=== PATIENT | female | born 1955 ===

== ENCOUNTER 2016-05-22 14:34 | Observation (INO) | payer MEDICARE, MEDICAID ==
[~2016-05-22] VITALS: Ht 162.6 cm; Wt 97.9 kg
--- NOTE | ~2016-05-22 | HP ---
PATIENT'S NAME: [facility] AGE: 61 Y [address] ROOM: [place] [address] LOCATION: [facility] ADMIT DATE: 05/22/2016 History & Physical DISCHARGE DATE: 05/24/2016 FAMILY PHYSICIAN: Arsenio Wallis MD ATTENDING PHYSICIAN: Arsenio Wallis DATE OF SERVICE: BRIEF HISTORY: This is a patient of mine, who was seen in the emergency room with falls on 2 occasions in a short period of time. The patient is being admitted for evaluation of falls and observation. The patient has low vision, hyperlipidemia, hypertension, type 2 diabetes, and history of noncompliance. PAST MEDICAL HISTORY: Significant for the following; hypothyroidism, type 2 diabetes, depression, low vision in both eyes, hypertension, chronic anticoagulation, asthma, hypertension, factor V Leiden deficiency. SOCIAL HISTORY: She is single. Lives by herself. FAMILY HISTORY: Significant for cancers, type 2 diabetes, heart disease, and AR. MEDICATIONS: At the time of admission include: 1. Insulin pump. 2. Levemir. 3. Lidoderm patch. 4. Metoprolol. 5. Omeprazole. 6. Rozerem. 7. Simvastatin. 8. Spironolactone. 9. Symbicort. 10. Torsemide. 11. Ventolin HFA. 12. Coumadin. 13. Duloxetine. 14. Isosorbide mononitrate. 15. Lamictal. 16. Primidone. 17. Topamax. PATIENT'S NAME: [facility] AGE: 61 Y [address] ROOM: [place] [address] LOCATION: [facility] ADMIT DATE: 05/22/2016 History & Physical DISCHARGE DATE: 05/24/2016 FAMILY PHYSICIAN: Arsenio Wallis MD ATTENDING PHYSICIAN: Arsenio Wallis REVIEW OF SYSTEMS: No recent weight loss or weight gain. No fevers or chills. No shortness of breath or chest discomfort. PHYSICAL EXAMINATION: GENERAL: Awake, alert, in no acute distress. HEENT: Unremarkable other than decreased vision. NECK: Supple. LUNGS: Clear. HEART: Regular rate and rhythm. ABDOMEN: Soft, nontender, nondistended. IMPRESSION: 1. Recent followup. 2. Hypertension. 3. Low vision. 4. Hyperlipidemia. 5. Hypothyroidism. 6. Depression. 7. Factor V Leiden deficiency. 8. Chronic anticoagulation. 9. Depression. PLAN: Admit for PT and OT. Gait training. May need continued treatment as an outpatient. MD KENNY CALIXTOP/modl /[id number] D: T: HISTORY & PHYSICAL
--- NOTE | ~2016-05-22 | ER ---
PATIENT'S NAME: [facility] AGE: 60 Y [address] ROOM: [place] [address] LOCATION: [facility] ADMIT DATE: 05/22/2016 ER/Outpatient Report DISCHARGE DATE: FAMILY PHYSICIAN: Arsenio Wallis MD ATTENDING PHYSICIAN: Arsenio Wallis Time of Arrival: 1435 hours. Time of Evaluation: 1435 hours. CHIEF COMPLAINT: Fall. HISTORY OF PRESENT ILLNESS: The patient is a 60-year-old female who presents to the emergency department today with a chief complaint of falls. The patient was seen and evaluated here in the emergency department yesterday for weakness and falls. She had made it to her neighbor's house yesterday, sat down and the neighbor became concerned because she was weak. She was seen and evaluated here in the emergency department. The work up which included laboratory analysis, urinalysis, CT scan of the brain, and EKG and those results were unremarkable. The patient was feeling better, and she was discharged home. She was instructed to follow up with Dr. Wallis. Today, the patient reports she has had multiple falls. She continues to feel weak. She does complain of mild headache at this time. It is all over. It is currently moderate in severity. It is not the worst headache of her life. It is not thunderclap. Apparently, there was a report that the patient was confused as well by the neighbors on report from EMS. 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 PAST SURGICAL HISTORY: Cholecystectomy. SOCIAL HISTORY: The patient lives alone and does have blindness in the right eye, decreased vision in left eye, denies any tobacco, alcohol, or illicit drug use. ALLERGIES: CODEINE. MEDICATIONS: Please see list. SALESPERSON [place] AND GLASSWARE: Rayo. PATIENT'S NAME: [facility] AGE: 60 Y [address] ROOM: [address] [address] LOCATION: [facility] ADMIT DATE: 05/22/2016 ER/Outpatient Report DISCHARGE DATE: FAMILY PHYSICIAN: Arsenio Wallis MD ATTENDING PHYSICIAN: Arsenio Wallis NEUROLOGY: Dr. Alexander. REVIEW OF SYSTEMS: All systems are reviewed by myself and are negative with the exception of those discussed in HPI and past medical history. PHYSICAL EXAMINATION: VITAL SIGNS: Weight 100 kg, blood pressure 132/73, pulse 90, respiratory rate 18, temperature 97.8, and oxygen saturation 96% on room air. GENERAL: The patient is a 60-year-old female who appears stated age. She appears in no acute distress. HEENT: Head: Normocephalic and atraumatic. Pupils are equal, round, and reactive to light. The patient's extraocular motions are intact. Nares are patent bilaterally. No Boone sign. No raccoon eyes. NECK: Supple. There is no nuchal rigidity. CARDIOVASCULAR: Regular rate and rhythm. No murmurs, rubs, or gallops. LUNGS: Clear to auscultation bilaterally. No wheezes, rales, or rhonchi. ABDOMEN: Soft, nontender, and nondistended. No rebound, rigidity, or guarding. MUSCULOSKELETAL: The patient does move all 4 extremities. She is able to ambulate with some assistance. NEUROLOGICAL: GCS 15. She is alert, oriented to person, place, time, and President. The patient has difficulties with [id number] likely secondary to her vision difficulties. She does have some slight asset administrator strength deficiency on the right side compared to the left. She has no pronator drift. Downward going toes. No clonus, 2/4 reflexes. SKIN: Multiple bruises noted. There are multiple scabbed areas on the legs. EXTREMITIES: She has 2/4 pulses in all 4 extremities. LABORATORY DATA AND X-RAYS: Labs and x-rays are obtained. EKG is obtained, shows sinus rhythm with a rate 88, normal axis, normal interval. No ST elevation, ST depression, or T-wave inversions. No significant change from 05/21/2016. Lactate is 2.0. CBC: White blood cell count 16.0, otherwise normal. INR is 3.1. CMP is unremarkable. LFTs are unremarkable. Cardiac enzymes are unremarkable. BMP is 212. Procalcitonin is less than 0.05. Chest x-ray shows no acute process. Urinalysis is pending. MRI of the brain is pending. IMPRESSION: 1. Weakness. 2. Immobility. 3. Frequent falls. 4. Initial visit. PATIENT'S NAME: FLA[facility]IA DI[facility]RICH [facility] AGE: 60 Y [address] ROOM: [address] [address] LOCATION: [facility] ADMIT DATE: 05/22/2016 ER/Outpatient Report DISCHARGE DATE: FAMILY PHYSICIAN: Arsenio Wallis MD ATTENDING PHYSICIAN: Arsenio Wallis EMERGENCY DEPARTMENT COURSE: The patient was brought back to the examination room. Seen and evaluated by myself. An IV was established. Laboratory analysis and imaging are obtained as described above. We are attempting to get the patient into the MRI. I have discussed the case with Dr. Wallis, the patient's primary care doctor. We are obviously concerned as the patient has had 2 ER visits over the past 2 days. She is feeling weak, and she is having falls and having issues with immobility. The patient lives alone and has minimal social support. I do feel the patient will require admission for observation. We have ordered the MRI, that MRI is pending at the time of dictation. I have discussed this with Dr. Wallis. He will follow up on those results. We will observe the patient in the hospital for further evaluation. DISPOSITION: The patient is admitted under the care of Dr. Wallis for observation in stable condition. DO ADRIÁN COLE/modl /[id number] d: 05/22/162008 t: 05/23/16 0727, OUTPATIENT REPORT
[2016-05-22 15:06] LABS: BASOPHIL # 0.1 K/uL (0.0-0.2); BASOPHIL % 0.3 %; EOSINOPHIL # 0.2 K/uL (0.0-0.5); EOSINOPHIL % 1.3 %; HEMATOCRIT 40.9 % (33.0-46.0); HEMOGLOBIN 13.5 g/dL (10.0-15.0); IMMATURE GRANULOCYTE # 0.1 K/uL (0.0-0.3); IMMATURE GRANULOCYTE % 0.8 %; LYMPHOCYTE # 3.1 K/uL (0.8-4.0); LYMPHOCYTE % 19.4 %; MCH 29.6 pg (27.0-34.0); MCV 89.7 fl (83.0-98.0); MONOCYTE # 0.7 K/uL (0.0-1.0); MONOCYTE % 4.5 %; MPV 9.6 fl (9.4-12.4); NEUTROPHIL # (ANC) 11.8 K/uL (1.8-7.8); NEUTROPHIL % 73.7 %; NRBC % 0 /100WBC (0-0.00); PLATELET COUNT 276 K/uL (150-450); RBC 4.56 M/uL (3.50-5.50); RDW-CV 14.2 % (11.9-14.6)
[2016-05-22 15:16] LABS: PTT 52 SECONDS (25-32)
[2016-05-22 15:19] LABS: INR - (THERAPEUTIC) 3.1 (0.9-1.1); PROTIME 35.7 SECONDS (9.6-11.1)
[2016-05-22 15:28] LABS: ALBUMIN 3.2 gm/dL (3.5-5.0); ALK PHOS 111 IU/L (33-138); ALT 33 IU/L (12-78); ANION GAP 14.5 (10.0-19.0); AST 11 IU/L (10-40); BLOOD UREA NITROGEN 13 mg/dL (6-24); CALCIUM 8.2 mg/dL (8.5-10.5); CHLORIDE 104 mMol/L (96-110); CO2 24 mMol/L (22-32); CPK 88 IU/L (21-215); CREATININE 0.8 mg/dL (0.5-1.1); ESTIMATED GFR (MDRD EQUATION) > 60; POTASSIUM 3.5 mMol/L (3.7-5.1); SODIUM 139 mMol/L (135-145); TOTAL PROTEIN 7.4 g/dL (6.0-8.4)
[2016-05-22 15:29] LABS: TOTAL BILIRUBIN 0.2 mg/dL (0.0-1.5)
[2016-05-22 16:33] LABS: BILIRUBIN URINE NEGATIVE (NEGATIVE); BLOOD URINE NEGATIVE /UL (NEGATIVE); GLUCOSE URINE NEGATIVE (NEGATIVE); KETONE URINE NEGATIVE (NEGATIVE); LEUKOCYTES URINE 25 /UL (NEGATIVE); NITRITE URINE NEGATIVE (NEGATIVE); PROTEIN URINE NEGATIVE (NEGATIVE); SPEC GRAVITY URINE 1.015 (1.003-1.035); UROBILINOGEN URINE NORMAL (NORMAL)
[2016-05-22 16:34] LABS: COLOR URINE YELLOW (YELLOW); TURBIDITY URINE CLEAR (CLEAR)
[2016-05-22 16:41] LABS: BACTERIA URINE NEGATIVE (NEGATIVE); EPITHELIAL URINE 0-2 #/HPF (NEGATIVE); RBC URINE 0-2 #/HPF (NEGATIVE); WBC URINE 0-2 #/HPF (NEGATIVE)
[2016-05-22] MEDS ORDERED: ATIVAN 1 MG1 MG PO ×2 (18:02→18:03)
[2016-05-22] MEDS ORDERED: COUMADIN ** IA5 MG PO ×2 (18:05→18:06)
[2016-05-22] MEDS ORDERED: LAMICTAL200 MG PO (18:07)
[2016-05-22] MEDS ORDERED: CYMBALTA60 MG PO (18:07)
[2016-05-22] MEDS ORDERED: SYMBICORT 16010.2 GM INH (18:07)
[2016-05-22] MEDS ORDERED: TOPAMAX100 MG PO (18:08)
[2016-05-22] MEDS ORDERED: SIMVASTATIN40 MG PO (18:08)
[2016-05-22] MEDS ORDERED: DOK100 MG PO (18:08)
[2016-05-22] MEDS ORDERED: MYSOLINE250 MG PO ×2 (18:09→18:10)
[2016-05-22] MEDS ORDERED: LIDOCAINE1 EACH TRANS (18:13)
[2016-05-22] MEDS ORDERED: ALDACTONE25 MG PO (18:14)
[2016-05-22] MEDS ORDERED: DEMADEX20 MG PO (18:14)
[2016-05-22] MEDS ORDERED: LOPRESSOR50 MG PO (18:14)
[2016-05-22] MEDS ORDERED: JANUVIA50 MG PO (18:14)
[2016-05-22] MEDS ORDERED: PRILOSEC20 MG PO (18:15)
[2016-05-22] MEDS ORDERED: IMDUR30 MG PO (18:15)
[2016-05-22] MEDS ORDERED: VITAMIN B-6100 MG PO (18:16)
[2016-05-22] MEDS ORDERED: THERA-VITE W/ B1 TAB PO (18:16)
[2016-05-22] MEDS ORDERED: LEVEMIR FL100 UNIT/1 SUB-Q (18:16)
[2016-05-22] MEDS ORDERED: FISH OIL 1,0001 EACH PO (18:16)
[2016-05-22] MEDS ORDERED: PROVENTIL OR V6.7 GM INH (18:16)
--- NOTE | 2016-05-22 18:43 | NUR ---
Patient is 60 yo female admitted for fall this afternoon, stated she hit her head. is admitted for observation. patient has long history of eye problems and is diabetic w/ neuropathy. patient is very pleasant to visit with. seems to know her history very well. states she has not been eating well and has only been eating popcorn. one time she stated she didn't know when she ate last, then later stated she ate popcorn yesterday is the last thing she ate. education is given as documented. patient denies questions at this time. patient states she has a twin brother, but he has a girlfriend and she can never get ahold of them anymore. pneumatics are on. call light is within reach. saline lock is noted in left hand without erythema or edema noted. report is given to EDMOND Edmond.
--- NOTE | 2016-05-22 20:08 | NUR ---
patient is given advanced directive book with directions for when she gets home and has her glasses available. denies questions. Seems appreciative.
--- NOTE | 2016-05-23 03:03 | NUR ---
Shift Summary: Patient admitted after multiple falls. Patient states she becomes unbalanced when ambulating and this causes her to fall. She is oriented x 3 but forgetful. Can ambulate with walker/gait belt and one assist. She is diabetic and on mild sliding scale. She was 89 at HS. Patient had a stroke 3 yr age that caused blindness to right eye and partial blindness to left eye. Has chronic lower back pain. Numbness/tingling to bilateral toes/fingers.
--- NOTE | 2016-05-23 10:00 | NUR ---
Introduced self to patient and my role. student nurse Odalys also present. She lives in low income housing here in [place], plans to return there. Has neighbors that check on eachother. Has [facility] in the recent past and would be interested in them again - [facility]. Will make referral. She has a walker, cane and wheelchair already. Home is handicap assessable and on one level. She couldn't think of any other needs. Did explained her OBS status to her and how that would effect her if she had to go to any chcf facilities. Also explained how she was approved for 48 hours so could be ready for discharge as soon as Thursday night or Thursday morning. We talked about options for getting a ride home - she thought of a few people and will try them (neighbors, friend, brother might be a possibility). Wrote my name on her board, will continue to follow. Placed a face to face form on the chart and flagged it for Dr. Wallis. 1155 called Eve with [facility]. Faxed them referral information at 0723. She was made aware that patient could discharge over the weekend. Placed a note on the chart that face to face, meds and orders need faxed to #[phone] and call placed to [facility] at #[phone].
--- NOTE | 2016-05-23 15:32 | NUR ---
Diabetes center note: 1230 and 1500 Patient states that her vision is not good, so needs assistance in completing the Diabetes Survival Skills Assessment form. CDE provides education and all is documented on the form, which is placed on the medical record. Patient has supplies to check her blood sugars at home and reports that the Doctor wants her to check blood sugars 4 times per day, but states that her fingers get too sore. Suggestions given to patient regarding location to properly alexandru her finger and other tips provided, Patient agrees to follow up with Dr. Campbell at [facility] for on-going diabetes management. Patient asks appropriate questions and agrees to call diabetes center if she has other questions or concerns.
--- NOTE | 2016-05-23 19:18 | NUR ---
Significant Event: PATIENT ALERT AND ORIENTED, FORGETFUL AT TIMES. AMBULATES TO BATHROOM AND UP TO CHAIR WITH 1 ASSIST, WITH USE OF WALKER/GAIT BELT, UNSTEADY AT TIMES. DENIED PAIN WHEN ASKED. ACCUCHECKS 129, 203, 158. NUMEROUS BRUISING AND SCABS TO BILATERAL ARMS/LEGS. CALF PUMPS ON. NUMBNESS/TINGLING TO TOES AND FINGERS. PATIENT BLIND R) EYE, AND PARTIAL BLINDNESS TO LEFT. HOME HEALTH TO CONSULT. Follow up:
--- NOTE | 2016-05-24 02:09 | NUR ---
Significant Event: Follow up: A/OX3. FORGETFUL. UP SBA WITH WALKER AND GAITBELT TO RESTROOM. VSS. TRAMADOL FOR THROBBING MIRANDA AT 0010. VOID WNL. CHRONIC NUMBNESS/TINGLING TO BILATERAL FEET. BED ALARMS FOR SAFETY. HISTORY OF FALLS.
--- NOTE | 2016-05-24 15:11 | NUR ---
pt given discharge instructions and voices understanding. pt will be followed by home health. understands that she needs meds and accuchecks done. pt escorted to the front door by kurt suazo.
== END 2016-05-24 14:45 | disposition home health service (06) ==
LOC: GACC 14:34 → G3N 16:17
PROVIDERS: Emergency Medicine; ADMIT Family Medicine
DX: R53.1 Weakness (principal); Z91.81 History of falling; E03.9 Hypothyroidism, unspecified; E11.9 Type 2 diabetes mellitus without complications; F32.9 Major depressive disorder, single episode, unspecified; I10 Essential (primary) hypertension; J44.9 Chronic obstructive pulmonary disease, unspecified; D68.2 Hereditary deficiency of other clotting factors; I69.898 Other sequelae of other cerebrovascular disease; H54.11 Blindness, right eye, low vision left eye; E78.5 Hyperlipidemia, unspecified; Z79.01 Long term (current) use of anticoagulants; Z79.4 Long term (current) use of insulin; Z79.51 Long term (current) use of inhaled steroids; Z79.899 Other long term (current) drug therapy; Z96.41 Presence of insulin pump (external) (internal)
CPT/HCPCS: A9270; G0378; G8978; G8979; G8980; G8987; G8988; G8989

== ENCOUNTER → 2016-09-05 | Outpatient (CLI) | payer MEDICARE, MEDICAID ==
[~2016-09-05] MED LIST: ALDACTONE25 MG PO; ATIVAN 1 MG1 MG PO; COUMADIN ** IA5 MG PO; CYMBALTA60 MG PO; DEMADEX20 MG PO; DOK100 MG PO; FISH OIL 1,0001 EACH PO; IMDUR30 MG PO; JANUVIA50 MG PO; LAMICTAL200 MG PO; LEVEMIR FL100 UNIT/1 SUB-Q; LIDOCAINE1 EACH TRANS; LOPRESSOR50 MG PO; MYSOLINE250 MG PO; PRILOSEC20 MG PO; PROVENTIL OR V6.7 GM INH; SIMVASTATIN40 MG PO; SYMBICORT 16010.2 GM INH; THERA-VITE W/ B1 TAB PO; TOPAMAX100 MG PO; VITAMIN B-6100 MG PO
== END | disposition disaster alternative care site (69) ==
LOC: GAMB 12:35
DX: R51 Headache (principal); R29.6 Repeated falls; Z79.01 Long term (current) use of anticoagulants; Z79.899 Other long term (current) drug therapy; Z88.6 Allergy status to analgesic agent
CPT/HCPCS: A0425; A0429

== ENCOUNTER → 2016-09-06 | Outpatient (CLI) | payer MEDICARE, MEDICAID | END | disposition disaster alternative care site (69) | LOC: GAMB 11:39 | DX: R51 Headache (principal); E11.9 Type 2 diabetes mellitus without complications; Z79.4 Long term (current) use of insulin; Z79.899 Other long term (current) drug therapy; Z88.6 Allergy status to analgesic agent | CPT/HCPCS: A0425; A0429 ==

== ENCOUNTER 2016-10-21 17:20 | Emergency (ER) | payer MEDICARE, MEDICAID ==
--- NOTE | ~2016-10-21 | ER ---
PATIENT'S NAME: FLAVIA DIETRICH [facility] AGE: 61 Y [address] ROOM: [place] [address] LOCATION: [facility] ADMIT DATE: 10/21/2016 ER/Outpatient Report DISCHARGE DATE: 10/21/2016 FAMILY PHYSICIAN: Arsenio Wallis MD ATTENDING PHYSICIAN: Svetlana Mendiola HISTORY OF PRESENT ILLNESS: This patient is a 61-year-old female, who presented to emergency room with chest pain. The patient had accompanying shortness of breath, nausea, and diaphoresis. No lightheadedness. Pain was in the left anterior chest area, sharp in nature. The patient had a verbal altercation prior to onset of this. The patient does have a history of coronary artery disease, insulin-dependent diabetes mellitus, hypertension. She has a history of cardiomyopathy. She has a history of elevated cholesterol and congestive heart failure with previous myocardial infarction. The patient initially saw Dr. Mendiola. See Dr. Mendiola's dictation in regard to see the chief complaint, history of the present illness, past medical history, and physical exam. Dr. Mendiola transferred the patient's care to me at shift change. Dr. Mendiola asked me to follow up with the patient's EKG results, chest x-ray results, laboratory study results, final diagnosis, and treatment plan. The patient's EKG x2, 2 hours apart showed no acute ST elevation, ischemic change, or arrhythmia. Chest x-ray showed no acute infiltrate or changes. X-ray will be reviewed by Radiology. LABORATORY DATA: [id number]-[id number] cardiac enzymes were normal x2, 2 hours apart. D-dimer was normal at 0.32. ProBNP was 51. CMS was normal except for a slight low sodium of 133, elevated glucose 171, magnesium 1.9. CPK x2, 2 hours apart were normal. White count was 19,400, 74 segs, 19 lymphs, 5 monos, 1 eo, 1 baso. Hemoglobin is 14.8, hematocrit 43.9, platelet count is 365,000. PTT was 39, ProTime is 17.1 with an INR 1.62. The patient was pain-free on arrival here to the emergency room, received no other medications. En route, she received one sublingual nitroglycerin and 4 baby aspirin. She did not require any medications here in the emergency department. IMPRESSION: 1. Left anterior chest pain, etiology uncertain, most likely angina. The patient has known atherosclerotic ischemic heart disease with coronary artery disease. She has had a previous myocardial infarction. 2. Hypertension. 3. Insulin-dependent diabetes mellitus. 4. Dyslipidemia. PLAN: Discussed with the patient my findings and recommendations. The patient did not want to come in the hospital and wanted to go home. The patient was PATIENT'S NAME: FLAVIA DIETRICH [facility] AGE: 61 Y [address] ROOM: [place] [address] LOCATION: [facility] ADMIT DATE: 10/21/2016 ER/Outpatient Report DISCHARGE DATE: 10/21/2016 FAMILY PHYSICIAN: Arsenio Wallis MD ATTENDING PHYSICIAN: Svetlana Mendiola discharged home. Observation and activity as tolerated. Stay out of the heat. Continue present home medications and care. Follow up with personal physician tomorrow. The patient may need to have a cardiac stress test possible echocardiogram as an outpatient. MD NEFTALY SIMS/modl /[id number] d: 10/22/16 005 t: 10/22/16 1815, OUTPATIENT REPORT
--- NOTE | ~2016-10-21 | ER ---
PATIENT'S NAME: [facility] AGE: 61 Y [address] ROOM: [place] [address] LOCATION: ED ADMIT DATE: 10/21/2016 ER/Outpatient Report DISCHARGE DATE: 10/21/2016 FAMILY PHYSICIAN: Arsenio Wallis MD ATTENDING PHYSICIAN: Svetlana Mendiola Time of Arrival: 1720 hours. Time of Evaluation: 1723 hours. IDENTIFICATION: A 61-year-old female. CHIEF COMPLAINT: Chest pain. HISTORY OF PRESENT ILLNESS: The patient is a 61-year-old female who developed chest pain 15 minutes prior to arrival while walking outside; left-sided chest pain; no radiation; associated with nausea, shortness of breath, and diaphoresis. The patient does have a previous history of coronary artery disease status post DE, history of factor V Leiden deficiency, cardiomyopathy, and congestive heart failure. ALLERGIES: CODEINE. CURRENT MEDICATIONS: 1. Advair 100/50 one puff b.i.d. 2. Aldactone 25 mg daily. 3. Cymbalta 60 mg b.i.d. 4. Demadex 20 mg daily. 5. Dulcolax 100 mg b.i.d. 6. Fish oil 1000 mg b.i.d. 7. Imdur 30 mg one and half tablets at bedtime. 8. Januvia 50 mg daily. 9. Lamotrigine 200 mg b.i.d. 10. Levemir 30 units subcu at bedtime. 11. Lorazepam 1 mg as needed. 12. Metoprolol 50 mg b.i.d. 13. Multivitamin daily. 14. Primidone 250 mg daily in the morning. 15. Primidone 250 mg at bedtime. 16. ProAir 2 puffs q.4 hours p.r.n. 17. Vitamin B6, 100 mg daily. 18. Simvastatin 40 mg at bedtime. PATIENT'S NAME: [facility] AGE: 61 Y [address] ROOM: [place] [address] LOCATION: ED ADMIT DATE: 10/21/2016 ER/Outpatient Report DISCHARGE DATE: 10/21/2016 FAMILY PHYSICIAN: Arsenio Wallis MD ATTENDING PHYSICIAN: Svetlana Mendiola 19. Topiramate 100 mg b.i.d. MEDICAL PROBLEMS: Coronary artery disease; previous stroke; hyperlipidemia; diabetes mellitus, insulin requiring; hypertension; cardiomyopathy; CHF; chronic anticoagulation; asthma; factor V Leiden deficiency; and depression. SOCIAL HISTORY: The patient lives by herself. She is disabled. Her child care provider is Dr. Martinez. Her primary care physician is Dr. Wallis. FAMILY HISTORY: Diabetes, cancer, heart disease, and DE. REVIEW OF SYSTEMS: All systems reviewed and negative other than what is noted in the HPI. Her pain was 6 on arrival. PHYSICAL EXAMINATION: VITAL SIGNS: Height 5 feet and 6 inches, weight 100 kg, blood pressure 163/68, pulse 127, respirations 18, temperature 99, and saturations 95% on room air. GENERAL: This is a 61-year-old female, in mild distress. HEENT: Head: Normocephalic and atraumatic. Ears: TMs translucent both ears. Nose: Mucosa pink. No lesions or drainage. Mouth: No lesions. Pharynx benign. NECK: Supple. No lymphadenopathy. LUNGS: Clear to auscultation. HEART: Regular rate and rhythm. ABDOMEN: Bowel sounds present. Soft. Nondistended. No hepatosplenomegaly. No palpable masses. Nontender. SKIN: [place], warm, and dry. No lesions or rashes noted. NEURO: The patient is alert and oriented x4. Cranial nerves II through XII grossly intact. Motor strength 5/5 throughout. Sensation is intact to light touch. No lower extremity edema. No calf tenderness. EMERGENCY DEPARTMENT COURSE: An IV was initiated. EKG was obtained. Four baby aspirin were given. D- dimer and cardiac labs were obtained. EKG at 1731 hours showed sinus tachycardia at 118 beats per minute, no acute ST elevation or depression, no previous EKG available at this time for comparison. The patient was given one sublingual nitroglycerin with complete resolution of her pain. It is shift change and Dr. Lopez will assume care and follow up of her labs, chest x-ray, and determine disposition. PATIENT'S NAME: FLAVIA DIETRICH [facility] AGE: 61 Y [address] ROOM: [place] [address] LOCATION: ED ADMIT DATE: 10/21/2016 ER/Outpatient Report DISCHARGE DATE: 10/21/2016 FAMILY PHYSICIAN: Arsenio Wallis MD ATTENDING PHYSICIAN: Svetlana Mendiola MD BRUNO OTT/adaml /[id number] d: 10/23/16 0113 t: 10/25/16 0819, OUTPATIENT REPORT
[2016-10-21 17:42] LABS: BASOPHIL # 0.1 K/uL (0.0-0.2); BASOPHIL % 0.5 %; EOSINOPHIL # 0.2 K/uL (0.0-0.5); EOSINOPHIL % 0.9 %; HEMATOCRIT 43.9 % (33.0-46.0); HEMOGLOBIN 14.8 g/dL (10.0-15.0); IMMATURE GRANULOCYTE # 0.1 K/uL (0.0-0.3); IMMATURE GRANULOCYTE % 0.5 %; LYMPHOCYTE # 3.6 K/uL (0.8-4.0); LYMPHOCYTE % 18.8 %; MCH 29.9 pg (27.0-34.0); MCHC 33.7 gm/dL (32.0-36.5); MCV 88.7 fl (83.0-98.0); MONOCYTE % 5.4 %; MPV 9.4 fl (9.4-12.4); NEUTROPHIL # (ANC) 14.3 K/uL (1.8-7.8); NEUTROPHIL % 73.9 %; NRBC % 0 /100WBC (0-0.00); PLATELET COUNT 365 K/uL (150-450); RBC 4.95 M/uL (3.50-5.50); RDW-CV 14.3 % (11.9-14.6); WBC 19.4 K/uL (4.0-11.0)
[2016-10-21 17:51] LABS: INR - (THERAPEUTIC) 1.62 (0.92-1.07); PROTIME 17.1 SECONDS (9.8-11.4); PTT 39 SECONDS (25-32)
[2016-10-21 18:05] LABS: ALBUMIN 3.9 gm/dL (3.5-5.0); ALK PHOS 121 IU/L (33-138); ALT 50 IU/L (12-78); ANION GAP 14.8 (10.0-19.0); AST 32 IU/L (10-40); BLOOD UREA NITROGEN 13 mg/dL (6-24); CALCIUM 9.1 mg/dL (8.5-10.5); CHLORIDE 97 mMol/L (96-110); CO2 25 mMol/L (22-32); CPK 67 IU/L (21-215); ESTIMATED GFR (MDRD EQUATION) 57; MAGNESIUM 1.9 mg/dL (1.8-2.6); POTASSIUM 3.8 mMol/L (3.7-5.1); SODIUM 133 mMol/L (135-145); TOTAL BILIRUBIN 0.6 mg/dL (0.0-1.5); TOTAL PROTEIN 8.3 g/dL (6.0-8.4)
[2016-10-21 19:54] LABS: CPK 70 IU/L (21-215)
== END 2016-10-21 20:16 | disposition disaster alternative care site (69) ==
LOC: GMED 17:20
PROVIDERS: Family Medicine
DX: R07.89 Other chest pain (principal); I25.10 Atherosclerotic heart disease of native coronary artery without angina pectoris; I25.2 Old myocardial infarction; E11.9 Type 2 diabetes mellitus without complications; E78.5 Hyperlipidemia, unspecified; I11.0 Hypertensive heart disease with heart failure; J45.909 Unspecified asthma, uncomplicated; D68.51 Activated protein C resistance; I50.9 Heart failure, unspecified; Z86.79 Personal history of other diseases of the circulatory system; Z88.5 Allergy status to narcotic agent; Z79.899 Other long term (current) drug therapy; Z86.73 Personal history of transient ischemic attack (TIA), and cerebral infarction without residual deficits; Z79.01 Long term (current) use of anticoagulants; Z79.4 Long term (current) use of insulin